=== PATIENT | male | born 1975 | race Caucasian/White ===

== ENCOUNTER → 2018-12-07 | Emergency (ER) | payer OTHER ==
[~2018-12-07] VITALS: Ht 172.7 cm; Wt 65.8 kg
[~2018-12-07] MED LIST: COLACE100 MG PO; PROCTOFOAM15 GM RECTAL
[2018-12-07 15:13] VITALS: BP 130/82
== END ==
LOC: M.ERS 14:58
DX: K64.8 Other hemorrhoids (principal); R07.89 Other chest pain; F17.210 Nicotine dependence, cigarettes, uncomplicated

== ENCOUNTER 2019-10-13 11:07 | Emergency (ER) | payer OTHER ==
[~2019-10-13] VITALS: Ht 170.2 cm; Wt 65.8 kg
[2019-10-13 11:16] VITALS: BP 141/97
[2019-10-13] MEDS ORDERED: NAPROSYN500 MG PO (11:27)
[2019-10-13] MEDS ORDERED: FLEXERIL PO (11:27)
== END 2019-10-13 12:00 | disposition home or self-care (01) ==
LOC: M.ERS 11:07
DX: S01.01XA Laceration without foreign body of scalp, initial encounter (principal); S29.012A Strain of muscle and tendon of back wall of thorax, initial encounter; F17.210 Nicotine dependence, cigarettes, uncomplicated; V89.2XXA Person injured in unspecified motor-vehicle accident, traffic, initial encounter; Y93.89 Activity, other specified; Y92.89 Other specified places as the place of occurrence of the external cause; Y99.8 Other external cause status